=== PATIENT | male | born 1965 | race Caucasian/White ===

== ENCOUNTER 2018-01-21 18:52 | Emergency (ER) | payer SELFPAY ==
[~2018-01-21] VITALS: Ht 185.4 cm; Wt 68.0 kg
[2018-01-21 19:26] VITALS: BP 128/73; PULSE 76; RESP 22; TEMP 98; O2SAT 100
[2018-01-21 20:06] VITALS: BP 128/81; PULSE 79; RESP 18; O2SAT 100
--- NOTE | 2018-01-21 20:33 | PD ---
HPI . distended abdomen pain Chief Complaint: Abdominal Pain Time Seen by Provider: 20:12 Travel History International Travel<30 days: No Contact w/Intl Traveler<30days: No Traveled to known affect area: No History of Present Illness HPI pt has distended abdomen and history of multiple surgeries on abdo for resection of carcinoid tumors to his abdo, he recently was in [facility] for surgery and had wound vac and had to be left open to heal by secondary intention due to dishesion of incision , Now complains 2 days worsening tense abdo swelling vomit no BM and tense bloating abdo PFSH Past Medical History Cancer: Yes (LEFT LUNG CARCINOMA, RIGHT TESTICLE) Chemotherapy: Yes COPD: Yes Medical other: Yes (MESOTHILIOMA) Tetanus Vaccination: > 5 Years Influenza Vaccination: No Past Surgical History Abdominal Surgery: Yes Genitourinary Surgery: Yes (TESTICLES REMOVED ) Social History Alcohol Use: No Tobacco Use: No Substance Use: No Allergies-Medications (Allergen,Severity, Reaction): Coded Allergies: Iodinated Contrast- Oral and IV Dye (Verified Allergy, Severe, 01/21/18) fentanyl (Verified Allergy, Severe, 01/21/18) RESP. DISTRESS ibuprofen (Verified Allergy, Severe, 01/21/18) VOMITING promethazine (Verified Allergy, Severe, 01/21/18) SWELLING Reported Meds & Prescriptions Reported Meds & Active Scripts Active Reported Atrovent HFA 12.9 GM Inh (Ipratropium [place]) 17 Mcg/Actuation Aer 2 Puff INH Q6HR Atenolol 25 Mg Tab 25 Mg PO BID Calcium Carbonate (Antacid) 500 Mg Chew 500 Mg CHEW BID PRN Potassium Chloride ER (Potassium Chloride) 20 Meq Tab 20 Meq PO BID Review of Systems Except as stated in HPI: all other systems reviewed are Neg Gastrointestinal: Positive: Nausea, Vomiting, Abdominal Pain (fears he is obstructed SBO has long hx of recurrent bowel obstructions ) Physical Exam Narrative GENERAL: [-] Abdomen is tense and distended with a midline scar healed but wide scar SKIN: Focused skin assessment warm/dry. HEAD: Atraumatic. Normocephalic. EYES: Pupils equal and round. No scleral icterus. No injection or drainage. ENT: No nasal bleeding or discharge. Mucous membranes pink and moist. NECK: Trachea midline. No JVD. CARDIOVASCULAR: Regular rate and rhythm. No murmur appreciated. RESPIRATORY: No accessory muscle use. Clear to auscultation. Breath sounds equal bilaterally. GASTROINTESTINAL: Abdomen tense distended abdomen MUSCULOSKELETAL: No obvious deformities. No clubbing. No cyanosis. No edema. NEUROLOGICAL: Awake and alert. No obvious cranial nerve deficits. Motor grossly within normal limits. Normal speech. PSYCHIATRIC: Appropriate mood and affect; insight and judgment normal. Data Data Last Documented VS Vital Signs Date Time Temp Pulse Resp B/P (MAP) Pulse Ox O2 Delivery O2 Flow Rate FiO2 01/21/18 23:39 01/21/18 20:06 79 18 100 Room Air 01/21/18 19:26 98.0 Orders Orders Complete Blood Count With Diff (01/21/18 20:45) Comprehensive Metabolic Panel (01/21/18 20:45) Ckmb (Isoenzyme) Profile (01/21/18 20:45) Troponin I (01/21/18 20:45) Lipase (01/21/18 20:45) Urinalysis - C+S If Indicated (01/21/18 20:45) Chest, Pa & Lat (01/21/18 20:45) Abdomen, Flat & Upright (01/21/18 20:45) Hydromorphone Pf Inj (Dilaudid Pf Inj) (01/21/18 21:00) Sodium Chlor 0.9% 1000 Ml Inj (Ns 1000 M (01/21/18 21:00) Place Ng Tube To Low Intermit (01/21/18 20:47) Ng Gastric Tube Insert/Monitor (01/21/18 20:47) Hydromorphone Pf Inj (Dilaudid Pf Inj) (01/21/18 21:30) Urine Culture (01/21/18 21:21) CKMB (01/21/18 21:10) CKMB% (01/21/18 21:10) Labs Laboratory Tests Test 01/21/18 21:10 01/21/18 21:21 White Blood Count 10.4 TH/MM3 Red Blood Count 3.70 MIL/MM3 Hemoglobin 8.8 GM/DL Hematocrit 27.9 % Mean Corpuscular Volume 75.2 FL Mean Corpuscular Hemoglobin 23.7 PG Mean Corpuscular Hemoglobin Concent 31.5 % Red Cell Distribution Width 22.6 % Platelet Count 188 TH/MM3 Mean Platelet Volume 7.4 FL Neutrophils (%) (Auto) 78.2 % Lymphocytes (%) (Auto) 9.5 % Monocytes (%) (Auto) 11.9 % Eosinophils (%) (Auto) 0.2 % Basophils (%) (Auto) 0.2 % Neutrophils # (Auto) 8.1 TH/MM3 Lymphocytes # (Auto) 1.0 TH/MM3 Monocytes # (Auto) 1.2 TH/MM3 Eosinophils # (Auto) 0.0 TH/MM3 Basophils # (Auto) 0.0 TH/MM3 CBC Comment DIFF FINAL Differential Comment Blood Urea Nitrogen 19 MG/DL Creatinine 0.96 MG/DL Random Glucose 84 MG/DL Total Protein 7.2 GM/DL Albumin 3.8 GM/DL Calcium Level 8.4 MG/DL Alkaline Phosphatase 81 U/L Aspartate Amino Transf (AST/SGOT) 21 U/L Alanine Aminotransferase (ALT/SGPT) 27 U/L Total Bilirubin 0.3 MG/DL Sodium Level 143 MEQ/L Potassium Level 3.8 MEQ/L Chloride Level 109 MEQ/L Carbon Dioxide Level 21.6 MEQ/L Anion Gap 12 MEQ/L Estimat Glomerular Filtration Rate 82 ML/MIN Total Creatine Kinase 128 U/L Creatine Kinase MB 2.2 NG/ML Troponin I LESS THAN 0.02 NG/ML Lipase 172 U/L Urine Color YELLOW Urine Turbidity CLOUDY Urine pH 5.0 Urine Specific Carbon 1.027 Urine Protein NEG mg/dL Urine Glucose (UA) NEG mg/dL Urine Ketones TRACE mg/dL Urine Occult Blood NEG Urine Nitrite NEG Urine Bilirubin NEG Urine Urobilinogen LESS THAN 2 mg/dL Urine Leukocyte Esterase MOD Urine RBC 4 /hpf Urine WBC 148 /hpf Urine Squamous Epithelial Cells 3 /hpf Urine Calcium Oxalate Crystals MANY /hpf Urine Bacteria OCC /hpf Urine Mucus FEW /lpf Microscopic Urinalysis Comment CULTURE INDICATED MDM Medical Decision Making Medical Screen Exam Complete: Yes Emergency Medical Condition: Yes Disposition: 07 AGAINST MEDICAL ADVICE Condition: Serious Gustabo Villarreal MD Jan 21, 2018 20:33
[2018-01-21] MEDS ORDERED: CALC500C16 CHEW (20:36)
[2018-01-21] MEDS ORDERED: IPRA17I INH (20:36)
[2018-01-21] MEDS ORDERED: POTA-163 PO (20:36)
[2018-01-21] MEDS ORDERED: ATEN25TA PO (20:36)
[2018-01-21] MEDS ORDERED: SODIUM CHLOR 0.9% 1000 ML INJ 1,000 ML IV ONE (21:00)
[2018-01-21] MEDS ORDERED: HYDROmorphone HCL PF 1 MG/ML VIAL IV PUSH ONE (21:00)
[2018-01-21] MEDS ORDERED: HYDROmorphone HCL PF 2 MG/ML VIAL IV PUSH ONE ×2 (21:30)
[2018-01-21 21:38] LABS: AUTOMATED NEUTROPHIL # 8.1 TH/MM3 (1.8-7.7); BASOPHIL % 0.2 % (0.0-2.0); EOSINOPHIL % 0.2 % (0.0-4.0); HEMATOCRIT 27.9 % (39.0-51.0); HEMOGLOBIN 8.8 GM/DL (13.0-17.0); LYMPH % 9.5 % (9.0-44.0); MEAN CELL VOLUME 75.2 FL (80.0-100.0); MEAN CORPUSCULAR HEMOGLOBIN 23.7 PG (27.0-34.0); MEAN CORPUSCULAR HGB CONC 31.5 % (32.0-36.0); MEAN PLATELET VOLUME 7.4 FL (7.0-11.0); MONO % 11.9 % (0.0-8.0); MONOCYTE # 1.2 TH/MM3 (0-0.9); NEUT % 78.2 % (16.0-70.0); PLATELET COUNT 188 TH/MM3 (150-450); RED CELL DISTRIBUTION WIDTH 22.6 % (11.6-17.2); WHITE BLOOD COUNT 10.4 TH/MM3 (4.0-11.0)
[2018-01-21 21:41] LABS: BACTERIA, URINE OCC /hpf; BILIRUBIN, URINE NEG (NEG); BLOOD, URINE NEG (NEG); CALCIUM OXALATE CRYSTALS,URINE MANY /hpf; GLUCOSE,URINE NEG (NEG); KETONE, URINE TRACE mg/dL (NEG); MUCUS URINE FEW /lpf (OCC); NITRITE,URINE NEG (NEG); SQUAMOUS EPITHELIAL CELL URINE 3 /hpf (0-5); URINE COLOR YELLOW (YELLW/STRAW); URINE LEUKOCYTE ESTERASE MOD (NEG)
[2018-01-21 22:07] LABS: ALBUMIN 3.8 GM/DL (3.4-5.0); ALT (GPT) 27 U/L (12-78); AST (GOT) 21 U/L (15-37); BICARBONATE 21.6 MEQ/L (21.0-32.0); BLOOD UREA NITROGEN 19 MG/DL (7-18); CALCIUM 8.4 MG/DL (8.5-10.1); CHLORIDE 109 MEQ/L (98-107); CREATININE 0.96 MG/DL (0.60-1.30); GLOMERULAR FILTRATION RATE 82 ML/MIN (>89); GLUCOSE,RANDOM 84 MG/DL (74-106); SODIUM (NA) 143 MEQ/L (136-145)
[2018-01-21 22:11] LABS: ALKALINE PHOSPHATASE 81 U/L (45-117); TOTAL BILIRUBIN ADULT 0.3 MG/DL (0.2-1.0); TOTAL PROTEIN 7.2 GM/DL (6.4-8.2); TROPONIN I LESS THAN 0.02 NG/ML (0.02-0.05)
--- NOTE | 2018-01-21 22:19 | RADRPT ---
EXAM DATE: 01/21/2018 9:53 PM EDT AGE/SEX: 52 years / Male INDICATIONS: Abdominal pain and distention. CLINICAL DATA: This is the patient's initial encounter. Patient reports that signs and symptoms have been present for 3 days and indicates a pain score of 10/10. MEDICAL/SURGICAL HISTORY: None. . Gastric surgery. COMPARISON: No prior exams available for comparison. FINDINGS: The cardiac silhouette is enlarged in transverse diameter. The lungs are free of acute parenchymal op acity. No effusions are identified. CONCLUSION: Cardiomegaly. No acute pulmonary disease. Electronically signed by: Miguel Bloom MD 01/21/2018 10:18 PM EDT
--- NOTE | 2018-01-21 22:22 | RADRPT ---
EXAM DATE: 01/21/2018 9:55 PM EDT AGE/SEX: 52 years / Male INDICATIONS: Abdominal pain and distention. CLINICAL DATA: This is the patient's initial encounter. Patient reports that signs and symptoms have been present for 3 days and indicates a pain score of 10/10. MEDICAL/SURGICAL HISTORY: None. . Gastric surgery. COMPARISON: No prior exams available for comparison. FINDINGS: Examination of the abdomen demonstrates gaseous distention of the colon most consistent with ileus .T here are no findings of small bowel obstruction. No free air is identified. No organomegaly is eviden t. There is possible thumbprinting involving the left colon after his concern for pseudomembranous co litis then CT scan is recommended. No free air is identified. CONCLUSION: Colonic ileus. Please see above. Electronically signed by: Miguel Bloom MD 01/21/2018 10:20 PM EDT
== END 2018-01-21 23:51 | disposition left against medical advice (07) ==
LOC: NEPC 18:52
DX: C45.7 Mesothelioma of other sites (principal); R14.0 Abdominal distension (gaseous)
CPT/HCPCS: 43753; 71046; 74019; 80053; 81001; 82550; 82552; 83690; 84484; 85025; 87086; 96361; 96374; 96376; 99285; J1170; J7030

== ENCOUNTER 2018-01-22 09:53 | Emergency (ER) | payer SELFPAY ==
[~2018-01-22] VITALS: Ht 185.4 cm; Wt 70.8 kg
[~2018-01-22 09:53] MED LIST: ATEN25TA PO; CALC500C16 CHEW; IPRA17I INH; POTA-163 PO
[2018-01-22 09:55] VITALS: BP 122/73; PULSE 82; RESP 16; TEMP 98.3; O2SAT 99
[2018-01-22 10:24] VITALS: BP 132/78; PULSE 95; RESP 16; O2SAT 97
[2018-01-22] MEDS ORDERED: SODIUM CHLOR 0.9% 1000 ML INJ 1,000 ML IV SCH (10:40)
--- NOTE | 2018-01-22 10:40 | PD ---
HPI Chief Complaint: GI Complaint Time Seen by Provider: 10:09 Travel History International Travel<30 days: No Contact w/Intl Traveler<30days: No Traveled to known affect area: No History of Present Illness HPI The patient was seen and examined in the presence of the nurse. This patient complains of abdominal pain and distention. It is a recurrent problem he has had many times. He was seen in the main ER yesterday but left AMA. He has history of multiple surgeries for carcinoid tumor in the abdomen. He is missing most of his small intestine. X-ray in the ER showed ileus and colonic distention. He is visiting here from [place] for a . He denies fever. He had a bowel movement 3 days ago. He usually has chronic diarrhea. Symptoms are severe. Duration is worsening over 1 week. No alleviating factors. No exacerbating factors. PFSH Past Medical History Anemia: Yes Anxiety: Yes Cancer: Yes (LEFT LUNG CARCINOMA, RIGHT TESTICLE, COLON) Chemotherapy: Yes COPD: Yes Gastrointestinal Disorders: Yes (hx of bowel obstructions) GERD: Yes Hypertension: Yes Respiratory: Yes (COPD ) Radiation Therapy: Yes Tetanus Vaccination: < 5 Years Influenza Vaccination: Yes Past Surgical History Abdominal Surgery: Yes (several colon resections r/t cancer dx 2001) Genitourinary Surgery: Yes (RT TESTICLE REMOVED r/t cancer 2 yrs ago) Social History Alcohol Use: No Tobacco Use: Yes (8-10 cigs a day) Substance Use: No Allergies-Medications (Allergen,Severity, Reaction): Coded Allergies: Iodinated Contrast- Oral and IV Dye (Verified Allergy, Severe, 01/22/18) fentanyl (Verified Allergy, Severe, 01/22/18) RESP. DISTRESS ibuprofen (Verified Allergy, Severe, 01/22/18) VOMITING promethazine (Verified Allergy, Severe, 01/22/18) SWELLING Reported Meds & Prescriptions Reported Meds & Active Scripts Active Reported Atrovent HFA 12.9 GM Inh (Ipratropium [place]) 17 Mcg/Actuation Aer 2 Puff INH Q6HR Atenolol 25 Mg Tab 25 Mg PO BID Calcium Carbonate (Antacid) 500 Mg Chew 500 Mg CHEW BID PRN Potassium Chloride ER (Potassium Chloride) 20 Meq Tab 20 Meq PO BID Review of Systems General / Constitutional: No: Fever Eyes: No: Visual changes HENT: No: Headaches Cardiovascular: No: Chest Pain or Discomfort Respiratory: No: Shortness of Breath Gastrointestinal: Positive: Nausea, Vomiting, Abdominal Pain, Constipation Genitourinary: No: Dysuria Musculoskeletal: No: Pain Skin: No Rash Neurologic: No: Weakness Psychiatric: No: Depression Endocrine: No: Polydipsia Hematologic/Lymphatic: No: Easy Bruising Physical Exam Narrative GENERAL: Thin anxious tremulous patient with abdominal pain and distention . SKIN: Focused skin assessment reveals no rash and nodules. Skin is Warm and dry. HEAD: Atraumatic. Normocephalic. EYES: Pupils equal and round. No scleral icterus. No injection or drainage. ENT: No nasal bleeding or discharge. Mucous membranes pink and moist. NECK: Trachea midline. No JVD. CARDIOVASCULAR: Regular rate and rhythm. No murmur appreciated. RESPIRATORY: No accessory muscle use. Clear to auscultation. Breath sounds equal bilaterally. GASTROINTESTINAL: Abdomen firm and very distended and diffusely tender. It is tympanitic. No bowel sounds heard. Hepatic and splenic margins not palpable. MUSCULOSKELETAL: No obvious deformities. No clubbing. No cyanosis. No edema. NEUROLOGICAL: Awake and alert. No obvious cranial nerve deficits. Motor grossly within normal limits. Normal speech. PSYCHIATRIC: Appropriate mood and affect; insight and judgment is questionable. Data Data Last Documented VS Vital Signs Date Time Temp Pulse Resp B/P (MAP) Pulse Ox O2 Delivery O2 Flow Rate FiO2 01/22/18 11:51 16 01/22/18 11:04 97 Room Air 01/22/18 10:24 95 01/22/18 09:55 98.3 Orders Orders Complete Blood Count With Diff (01/22/18 10:40) Comprehensive Metabolic Panel (01/22/18 10:40) Lipase (01/22/18 10:40) Prothrombin Time / Inr (Pt) (01/22/18 10:40) Act Partial Throm Time (Ptt) (01/22/18 10:40) Ct Abd/Pel W/O Iv Contrast (01/22/18 10:40) Iv Access Insert/Monitor (01/22/18 10:40) Ecg Monitoring (01/22/18 10:40) Oximetry (01/22/18 10:40) NPO (01/22/18 10:40) Sodium Chlor 0.9% 1000 Ml Inj (Ns 1000 M (01/22/18 10:40) Sodium Chloride 0.9% Flush (Ns Flush) (01/22/18 10:45) Insert Ng Tube (01/22/18 10:40) Hydromorphone Pf Inj (Dilaudid Pf Inj) (01/22/18 10:45) Ondansetron Odt (Zofran Odt) (01/22/18 10:45) Labs Laboratory Tests Test 01/22/18 10:50 White Blood Count 6.8 TH/MM3 Red Blood Count 3.47 MIL/MM3 Hemoglobin 8.4 GM/DL Hematocrit 26.9 % Mean Corpuscular Volume 77.5 FL Mean Corpuscular Hemoglobin 24.1 PG Mean Corpuscular Hemoglobin Concent 31.1 % Red Cell Distribution Width 21.6 % Platelet Count 189 TH/MM3 Mean Platelet Volume 7.6 FL Neutrophils (%) (Auto) 79.0 % Lymphocytes (%) (Auto) 9.8 % Monocytes (%) (Auto) 9.9 % Eosinophils (%) (Auto) 0.9 % Basophils (%) (Auto) 0.4 % Neutrophils # (Auto) 5.2 TH/MM3 Lymphocytes # (Auto) 0.7 TH/MM3 Monocytes # (Auto) 0.7 TH/MM3 Eosinophils # (Auto) 0.1 TH/MM3 Basophils # (Auto) 0.0 TH/MM3 CBC Comment AUTO DIFF Differential Comment AUTO DIFF CONFIRMED Platelet Estimate NORMAL Platelet Morphology Comment NORMAL Rouleau PRESENT Red Cell Morphology Comment NORMAL Prothrombin Time 10.5 SEC Prothromb Time International Ratio 1.0 RATIO Activated Partial Thromboplast Time 24.3 SEC Blood Urea Nitrogen 15 MG/DL Creatinine 0.92 MG/DL Random Glucose 102 MG/DL Total Protein 6.3 GM/DL Albumin 3.3 GM/DL Calcium Level 8.0 MG/DL Alkaline Phosphatase 69 U/L Aspartate Amino Transf (AST/SGOT) 16 U/L Alanine Aminotransferase (ALT/SGPT) 27 U/L Total Bilirubin 0.4 MG/DL Sodium Level 143 MEQ/L Potassium Level 3.4 MEQ/L Chloride Level 110 MEQ/L Carbon Dioxide Level 23.5 MEQ/L Anion Gap 10 MEQ/L Estimat Glomerular Filtration Rate 86 ML/MIN Lipase 238 U/L MDM Medical Decision Making Medical Screen Exam Complete: Yes Emergency Medical Condition: Yes Medical Record Reviewed: Yes Differential Diagnosis obstruction, ileus, colitis Narrative Course I have reviewed the patient's electronic medical record. I reviewed the ER note from yesterday around 9 PM. He had x-ray of chest and abdomen. Labs are reviewed. He left AMA This patient is very challenging to take care of. He clearly has a very serious problem with prominent abdominal pain and distention. For step is to put an IV in him. He says he has terrible veins and refuses to allow any peripheral vein access attempt of his arms. He says the only place that anyone can get an IV is in his left leg, medial aspect above the knee. It is where they placed an IV yesterday in the ER. He refuses to allow me to place a central line. He says both sides of his neck and both sides of his groin are extremely scarred down from so many central lines that they cannot be passed any longer and he will not allow me to attempt 1. Right now the nurses attempting to place a peripheral IV in his left leg and the only spot he will let us try. he is making this visit extremely challenging. Patient is very argumentative and demanding. We now have a peripheral IV in place. Patient will get a dose of pain medicine and a dose of Zofran and some IV fluid 1 L normal saline IV bolus We will place an NG tube and hook it to suction When he will get CT of abdomen and pelvis. He has severe allergy to both oral and IV dye he says. He says he had anaphylactic reaction to the IV dye. CBC and metabolic profile and LFTs and lipase are all normal CT scan results are reviewed. No obstruction seen. There is a lot of stool in the colon suggesting constipation. He has put out 600 cc of paulino colored liquid from his NG tube. Patient became very argumentative. He started becoming hostile and raising his voice. He was arguing with staff about his Dilaudid dosing. Interestingly enough, the patient refused to have the nurse do it and he placed his own NG tube. He did not bring an ID to the ER The hospitals that he listed that he has been treated with previously do not seem to exist. We cannot locate them. I tried to get old records but this is not possible. There are lots of red flags for narcotic seeking behavior. I recommended a day in the hospital with NG suction but the patient refused. He got up and left angry. He refused to sign the AMA paperwork. He would not listen to anybody. He just wanted to argue. He was escorted out by security. Critical Care Narrative Aggregate critical care time was 78 minutes. Time to perform other separately billable procedures was not included in the critical care time. My time did not include minutes spent treating any other patients simultaneously or on activities that did not directly contribute to the patient's treatment. The services I provided to this patient were to treat and/or prevent clinically significant deterioration that could result in: Intestinal perforation, peritonitis, cardiopulmonary arrest, septic shock I provided critical care services requiring my management, as noted below: Chart data review, documentation time, medication orders and management, vital sign assessments/reviewing monitor data, ordering and reviewing lab tests, ordering and interpreting/reviewing x-rays and diagnostic studies, care of the patient and discussion of the patient with the admitting physicians. Diagnosis Primary Impression: Ileus Additional Impressions: Abdominal distention Narcotic seeking behavior Disposition: 07 AGAINST MEDICAL ADVICE Won Orta MD Jan 22, 2018 10:40
[2018-01-22] MEDS ORDERED: ONDANSETRON ODT 4 MG TAB PO ONE (10:45)
[2018-01-22] MEDS ORDERED: SODIUM CHLORIDE 0.9% FLUSH 10 ML FLUSH IV FLUSH PRN (10:45)
[2018-01-22] MEDS ORDERED: HYDROmorphone HCL PF 2 MG/ML VIAL IV PUSH ONE (10:45)
[2018-01-22 11:04] VITALS: RESP 16; O2SAT 97
[2018-01-22 11:06] LABS: AUTOMATED NEUTROPHIL # 5.2 TH/MM3 (1.8-7.7); BASOPHIL % 0.4 % (0.0-2.0); EOSINOPHIL # 0.1 TH/MM3 (0-0.4); EOSINOPHIL % 0.9 % (0.0-4.0); HEMATOCRIT 26.9 % (39.0-51.0); HEMOGLOBIN 8.4 GM/DL (13.0-17.0); LYMPH % 9.8 % (9.0-44.0); LYMPHOCYTE # 0.7 TH/MM3 (1.0-4.8); MEAN CELL VOLUME 77.5 FL (80.0-100.0); MEAN CORPUSCULAR HEMOGLOBIN 24.1 PG (27.0-34.0); MEAN CORPUSCULAR HGB CONC 31.1 % (32.0-36.0); MEAN PLATELET VOLUME 7.6 FL (7.0-11.0); MONO % 9.9 % (0.0-8.0); MONOCYTE # 0.7 TH/MM3 (0-0.9); PLATELET COUNT 189 TH/MM3 (150-450); RED BLOOD COUNT 3.47 MIL/MM3 (4.50-5.90); RED CELL DISTRIBUTION WIDTH 21.6 % (11.6-17.2); WHITE BLOOD COUNT 6.8 TH/MM3 (4.0-11.0)
[2018-01-22 11:12] LABS: CHLORIDE 110 MEQ/L (98-107); SODIUM (NA) 143 MEQ/L (136-145)
[2018-01-22 11:16] LABS: ALBUMIN 3.3 GM/DL (3.4-5.0); BICARBONATE 23.5 MEQ/L (21.0-32.0); BLOOD UREA NITROGEN 15 MG/DL (7-18); GLUCOSE,RANDOM 102 MG/DL (74-106); PROTHROMBIN TIME - PATIENT 10.5 SEC (9.8-11.6)
[2018-01-22 11:19] LABS: ALT (GPT) 27 U/L (12-78); AST (GOT) 16 U/L (15-37); CREATININE 0.92 MG/DL (0.60-1.30); GLOMERULAR FILTRATION RATE 86 ML/MIN (>89)
[2018-01-22 11:21] LABS: TOTAL BILIRUBIN ADULT 0.4 MG/DL (0.2-1.0); TOTAL PROTEIN 6.3 GM/DL (6.4-8.2)
[2018-01-22 11:22] LABS: ALKALINE PHOSPHATASE 69 U/L (45-117)
--- NOTE | 2018-01-22 11:28 | RADRPT ---
EXAM DATE: 01/22/2018 11:22 AM EDT AGE/SEX: 52 years / Male INDICATIONS: Vomiting blood for two days. Evaluate for obstruction. CLINICAL DATA: This is the patient's initial encounter. Patient reports that signs and symptoms have been present for 2 days and indicates a pain score of 6/10. MEDICAL/SURGICAL HISTORY: Carcinoma, lung. Carcinoma, testicular. Carcinoma, colon. Hyperten fátima. COPD. Bowel obstruction. Colon resection. Right orchiectomy. RADIATION DOSE: 8.33 CTDI (mGy) COMPARISON: [facility] [place], ABDOMEN FLAT & UPRIGHT, 01/21/2018. . TECHNIQUE: Multiple contiguous axial images were obtained through the abdomen. Images were obtained using multiple row detector helical technique. Using automated exposure control and adjustment of the mA and/or kV according to patient size, radiation dose was kept as low as reasonably achievable to o btain optimal diagnostic quality images. DICOM format image data is available electronically for rev iew and comparison. FINDINGS: Lower Lungs: The visualized lower lungs are clear. Liver: The liver has a homogeneous density without space-occupying lesion. Calcified gallstones There is no dilation of the biliary tree. Spleen: Homogeneous density without enlargement. Pancreas: Unremarkable without mass or calcification. Kidneys: Normal in size and shape. No evidence of mass or hydronephrosis. Adrenal Glands: Unremarkable. Aorta: The aorta and proximal iliac vessels are grossly unremarkable without aneurysmal dilation. Bowel/Mesentery: Copious amount of stool throughout the large bowel consistent with constipation. An astomotic sutures are seen within the abdomen. No obstruction. Nasogastric tube with tip in stomach Abdominal Wall: Intact. Retroperitoneum: No evidence of adenopathy in the retrocrural, para-aortic, or deep pelvic regions. Bladder: Contours are smooth. Reproductive Organs: No abnormal masses or calcifications seen. Inguinal: The inguinal region is unremarkable without evidence of adenopathy. Bony Structures: Unremarkable. CONCLUSION: 1. Constipation. No bowel obstruction. 2. Cholelithiasis Electronically signed by: Karthik Hernandez MD 01/22/2018 11:26 AM EDT
[2018-01-22 11:51] VITALS: RESP 16
[2018-01-22 11:56] LABS: ROULEAUX PRESENT (NORMAL)
== END 2018-01-22 12:19 | disposition left against medical advice (07) ==
LOC: PHED 09:53
DX: K56.7 Ileus, unspecified (principal); R14.0 Abdominal distension (gaseous); Z76.5 Malingerer [conscious simulation]; J44.9 Chronic obstructive pulmonary disease, unspecified; I10 Essential (primary) hypertension; Z72.0 Tobacco use; Z88.6 Allergy status to analgesic agent; Z53.21 Procedure and treatment not carried out due to patient leaving prior to being seen by health care provider
CPT/HCPCS: 74176; 80053; 83690; 85025; 85610; 85730; 96361; 96374; 99291; 99292; J1170; J7030